=== PATIENT | female | born 1940 | race Hispanic/Latino ===

== ENCOUNTER 2018-06-09 08:02 | Emergency (ER) | payer OTHER ==
[~2018-06-09 08:02] MED LIST: ALBU8.5H8 IH; LEVO500T2 PO; Prednisone PO
[2018-06-09] MEDS ORDERED: PREDNISONE 20 MG TABLET ONE (08:33)
[2018-06-09] MEDS ORDERED: KETOROLAC TROMETHAMINE 30MG/ML ONE (09:29)
== END 2018-06-09 10:20 | disposition home or self-care (01) ==
LOC: EDH 08:02
DX: S43.401A Unspecified sprain of right shoulder joint, initial encounter (principal); M75.31 Calcific tendinitis of right shoulder; Z90.710 Acquired absence of both cervix and uterus; Z88.2 Allergy status to sulfonamides; X50.0XXA Overexertion from strenuous movement or load, initial encounter; Y93.89 Activity, other specified; Y92.89 Other specified places as the place of occurrence of the external cause; Y99.8 Other external cause status
CPT/HCPCS: 73030; 96372; 99283; J1885

== ENCOUNTER → 2022-02-22 | Outpatient (CLI) | payer OTHER ==
[~2022-02-22] MED LIST changes: +FAMO20TA8 PO; +GABA-529 PO; +HYDR-4153 PO; -LEVO500T2 PO; +LOSA25TA41 PO; -Prednisone PO; +TRAM1TAB2 PO
[2022-02-22 11:56] LABS: INR 0.98 (0.85-1.15); PROTHROMBIN TIME 10.7 SEC (9.6-11.6)
[2022-02-22 11:58] LABS: PARTIAL THROMBOPLASTIN TIME 32.5 SEC (26.3-35.5)
== END | disposition home or self-care (01) ==
LOC: LAB 10:59
PROVIDERS: ATTEND Otolaryngology
DX: Z01.812 Encounter for preprocedural laboratory examination (principal); E04.1 Nontoxic single thyroid nodule
CPT/HCPCS: 36415; 85610; 85730

== ENCOUNTER → 2022-02-25 | Outpatient (CLI) | payer OTHER | END | disposition home or self-care (01) | LOC: RAH 07:55 | PROVIDERS: ATTEND Otolaryngology | DX: E04.1 Nontoxic single thyroid nodule (principal) | CPT/HCPCS: 10005; 76942; 88173; 88305 ==

== ENCOUNTER → 2022-04-11 | Outpatient (CLI) | payer OTHER | END | disposition home or self-care (01) | LOC: RAH 13:24 | PROVIDERS: ATTEND Internal Medicine | DX: N83.201 Unspecified ovarian cyst, right side (principal) | CPT/HCPCS: 76856 ==

== ENCOUNTER → 2022-08-09 | Outpatient (CLI) | payer OTHER | END | disposition home or self-care (01) | LOC: RAH 10:49 | PROVIDERS: ATTEND Internal Medicine | DX: E04.2 Nontoxic multinodular goiter (principal) | CPT/HCPCS: 76536 ==

== ENCOUNTER → 2022-10-14 | Outpatient (CLI) | payer OTHER | END | disposition home or self-care (01) | LOC: RAH 11:59 | PROVIDERS: ATTEND Internal Medicine | DX: M25.552 Pain in left hip (principal); M54.50 Low back pain, unspecified | CPT/HCPCS: 73502 ==

== ENCOUNTER → 2023-03-27 | Outpatient (CLI) | payer OTHER | END | disposition home or self-care (01) | LOC: RAH 12:46 | PROVIDERS: ATTEND Otolaryngology | DX: E04.2 Nontoxic multinodular goiter (principal) | CPT/HCPCS: 76536 ==

== ENCOUNTER → 2023-07-14 | Outpatient (CLI) | payer OTHER ==
[~2023-07-14] MED LIST changes: -HYDR-4153 PO; +HYDR25TA67 PO
== END | disposition home or self-care (01) ==
LOC: RAH 13:41
PROVIDERS: ATTEND Urology
DX: N28.1 Cyst of kidney, acquired (principal)
CPT/HCPCS: 76770

== ENCOUNTER 2023-09-10 21:34 | Observation (INO) | payer OTHER ==
[~2023-09-10] VITALS: Ht 165.1 cm; Wt 81.1 kg
[2023-09-10] MEDS: NITROGLYCERIN 0.4 MG SL TAB SL ONE (21:52)
[2023-09-10] MEDS: NITROGLYCERIN 0.4 MG SL TAB SL PRN (21:56)
[2023-09-10 22:22] LABS: BASOPHILS # (AUTO) 0.06 K/uL (0.00-0.20); BASOPHILS % (AUTO) 0.4 % (0.0-5.0); EOSINOPHILS # (AUTO) 0.19 K/uL (0.00-0.70); EOSINOPHILS % (AUTO) 1.1 % (0.0-8.0); HEMATOCRIT 39.6 % (36-48); LYMPHOCYTES # (AUTO) 2.5 K/uL (1.0-4.8); LYMPHOCYTES % (AUTO) 14.8 % (21.0-51.0); MEAN CORPUSCULAR HEMOGLOBIN 30.1 pg (27.0-33.0); MEAN CORPUSCULAR HGB CONC 32.3 g/dL (32.0-36.0); MEAN CORPUSCULAR VOLUME 93.2 fL (79-99); MONOCYTES # (AUTO) 1.2 K/uL (0.1-1.0); MONOCYTES % (AUTO) 6.9 % (3.0-13.0); NEUTROPHILS # (AUTO) 12.8 K/uL (1.8-7.7); NEUTROPHILS % (AUTO) 76.2 % (40.0-77.0); PLATELET COUNT (AUTO) 354 K/uL (130-400); RED BLOOD CELL COUNT(AUTO) 4.25 MIL/uL (4.00-5.50); RED CELL DISTRIBUTION WIDTH 15.2 % (11.0-15.5); WHITE BLOOD COUNT (AUTO) 16.8 K/uL (4.8-10.8)
[2023-09-10 22:28] LABS: CREATININE 0.6 mg/dL (0.5-1.0); POTASSIUM 4.3 mmol/L (3.5-5.1)
[2023-09-10 22:33] LABS: ALBUMIN 3.1 g/dL (3.5-5.0); BILIRUBIN,TOTAL 0.2 mg/dL (0.2-1.0); TOTAL PROTEIN, SERUM 7.6 g/dL (6.0-8.3)
[2023-09-10 23:26] LABS: B-TYPE NATRIURETIC PEPTIDE 119 pg/mL (0-100)
[2023-09-10] MEDS ORDERED: ONDANSETRON 4MG INJ IVP PRN (23:30)
[2023-09-10] MEDS ORDERED: NITROGLYCERIN 1GM OINT 1 INCH/1GM TD SCH (23:30)
[2023-09-10] MEDS ORDERED: POTASSIUM CHLORIDE 10MEQ/100ML 100 ML IV PRN (23:30)
[2023-09-10] MEDS ORDERED: OLME-9 PO (23:55)
[2023-09-11] MEDS ORDERED: ACETAMINOPHEN 325 MG TAB PO PRN
[2023-09-11] MEDS ORDERED: ALBUTEROL 0.083% 2.5 MG/3 ML INH IH PRN
[2023-09-11] MEDS ORDERED: LACTULOSE 20 GM/30 ML UDCUP PO PRN
[2023-09-11] MEDS ORDERED: HYDRALAZINE 25MG TABLET PO PRN
[2023-09-11] MEDS ORDERED: GUAIFENESIN-DM 200/20 MG 10 ML PO PRN
[2023-09-11] MEDS ORDERED: HYDR25TA67 PO (00:08)
[2023-09-11] MEDS: NITROGLYCERIN 1GM OINT 1 INCH/1GM TD ONE (00:17)
[2023-09-11] MEDS: ACETAMINOPHEN 325 MG TAB PO PRN (00:19)
[2023-09-11] MEDS ORDERED: POTASSIUM CHLORIDE 10% ELIXIR 20 MEQ/15 ML UDCUP PO PRN (00:30)
[2023-09-11] MEDS ORDERED: KCL 20 MEQ ERTAB PO PRN (00:30)
[2023-09-11] MEDS ORDERED: HYDRALAZINE 20MG/ML VIAL IV PRN (00:30)
[2023-09-11] MEDS ORDERED: POTASSIUM CHLORIDE 20MEQ/100ML 100 ML IV PRN ×2 (00:30)
[2023-09-11] MEDS: MAG/ALUM/SIMETH 30 ML UDCUP PO PRN (02:34)
[2023-09-11] MEDS: 0.9%NACL 1000ML 1,000 ML IV SCH (02:34)
[2023-09-11] MEDS: HYDRALAZINE 25MG TABLET PO SCH (02:34)
[2023-09-11] MEDS: PANTOPRAZOLE 40 MG TAB DR PO ONE (02:34)
[2023-09-11 05:42] VITALS: BP 145/71; PULSE 62; RESP 18
[2023-09-11 06:22] VITALS: O2SAT 94
[2023-09-11] MEDS ORDERED: (Albuterol Sulfate (Proair Hfa) 8.5 GM) IH PRN (06:30)
[2023-09-11] MEDS: NITROGLYCERIN 1GM OINT 1 INCH/1GM TD SCH (07:30)
[2023-09-11 08:00] VITALS: BP 167/75; PULSE 64; RESP 18; O2SAT 94
[2023-09-11] MEDS: ASPIRIN 325MG TAB PO SCH (09:00)
[2023-09-11] MEDS: (Olmesartan/Hydrochlorothiazide (Olmesartan-Hctz 40-12.5 m PO SCH (09:00)
[2023-09-11] MEDS ORDERED: HYDRALAZINE 25MG TABLET PO SCH (09:00)
[2023-09-11] MEDS: FAMOTIDINE 20MG TAB PO SCH (09:00)
[2023-09-11] MEDS: ENOXAPARIN SODIUM 30 MG/0.3 ML SQ SCH (09:15)
[2023-09-11] MEDS: LABETALOL 20MG SYG IV ONE (09:16)
[2023-09-11] MEDS: LABETALOL 20MG VIAL IV PRN (09:18)
[2023-09-11 11:51] VITALS: BP 134/56; PULSE 65; RESP 18
[2023-09-11] MEDS: REGADENOSON 0.4 MG/5 ML PF SYG IVP SCH (14:29)
[2023-09-11 16:00] VITALS: BP 155/76; PULSE 72; RESP 18
[2023-09-11 19:00] VITALS: BP 145/72; PULSE 70; RESP 19
== END 2023-09-11 21:19 | disposition home or self-care (01) ==
LOC: EDH 21:34 → EDHIP 23:26 → 3BH 09-11 05:33
PROVIDERS: ADMIT Internal Medicine; ATTEND Internal Medicine
DX: R07.89 Other chest pain (principal); I10 Essential (primary) hypertension; E78.5 Hyperlipidemia, unspecified; K21.9 Gastro-esophageal reflux disease without esophagitis; M19.90 Unspecified osteoarthritis, unspecified site; Z90.710 Acquired absence of both cervix and uterus; Z91.148 Patient's other noncompliance with medication regimen for other reason; Z79.899 Other long term (current) drug therapy
CPT/HCPCS: 99285; 83735; 84484 ×6; 80053; 83880; 85025; 85730; 36415 ×2; 71045; 93005; 96372; 96374; 96361; 82550 ×3; 93017; 78452; G0378 ×18; J7030; J1650; J2785; A9500 ×2

== ENCOUNTER → 2023-12-04 | Outpatient (CLI) | payer OTHER ==
[~2023-12-04] MED LIST changes: -FAMO20TA8 PO; -GABA-529 PO; -LOSA25TA41 PO; +OLME-30 PO; -TRAM1TAB2 PO
== END | disposition home or self-care (01) ==
LOC: RAH 10:30
PROVIDERS: ATTEND Internal Medicine
DX: M47.816 Spondylosis without myelopathy or radiculopathy, lumbar region (principal); M54.50 Low back pain, unspecified; W19.XXXA Unspecified fall, initial encounter
CPT/HCPCS: 72100